=== PATIENT | male | born 1935 | race Caucasian/White ===

== ENCOUNTER → 2016-11-13 | Outpatient (CLI) | payer MEDICARE | END | disposition home or self-care (01) | LOC: RAD 08:26 | PROVIDERS: ATTEND Psychiatry & Neurology Neurology | DX: M51.34 Other intervertebral disc degeneration, thoracic region (principal); M51.24 Other intervertebral disc displacement, thoracic region; M51.44 Schmorl's nodes, thoracic region | CPT/HCPCS: 72146 ==

== ENCOUNTER 2017-08-29 11:23 | Emergency (ER) | payer MEDICARE ==
[~2017-08-29] VITALS: Ht 170.2 cm; Wt 73.0 kg
[2017-08-29] MEDS ORDERED: RIVA15TA PO (12:25)
[2017-08-29] MEDS ORDERED: GABA-826 PO (12:33)
[2017-08-29] MEDS ORDERED: FLUO10CA7 PO (12:33)
[2017-08-29] MEDS ORDERED: LANS30CA60 PO (12:33)
[2017-08-29] MEDS ORDERED: NITR0.4T28 SL (12:33)
[2017-08-29] MEDS ORDERED: OMEG-14 PO (12:33)
[2017-08-29] MEDS ORDERED: METO25TA35 PO (12:33)
[2017-08-29] MEDS ORDERED: DONE10TA56 PO (12:33)
[2017-08-29] MEDS ORDERED: CARB1TAB2 PO (12:33)
[2017-08-29] MEDS ORDERED: FENO145T13 PO (12:33)
[2017-08-29] MEDS ORDERED: ONDANSETRON 2MG/ML, 2ML IVPush ONE (13:00)
[2017-08-29] MEDS ORDERED: ASPIRIN 81 MG TABLET CHEW PO ONE (13:00)
[2017-08-29] MEDS ORDERED: MORPHINE SULFATE 4 MG/ML, 1ML IVPush PRN (13:00)
[2017-08-29] MEDS ORDERED: SODIUM CHLORIDE FLUSH 10ML SYR IVF ONE (13:00)
[2017-08-29 13:21] LABS: MEAN CORPUSCULAR HEMOGLOBIN 32.7 pg (27.5-34.5); MEAN CORPUSCULAR HGB CONC 32.5 g/dL (33.2-36.2); MEAN CORPUSCULAR VOLUME 100.7 fL (81-97); MEAN PLATELET VOLUME 8.4 fL (7.4-10.4); PLATELET COUNT 136 x10^3/uL (130-400); RED CELL DISTRIBUTION WIDTH 15.1 % (9.4-14.8)
[2017-08-29 13:31] LABS: ALBUMIN 3.5 g/dL (3.4-5.0); ANION GAP 6 mmol/L (5-15); CALCIUM 8.8 mg/dL (8.5-10.1); CHLORIDE 109 mmol/L (98-107); CREATININE 1.32 mg/dL (0.7-1.3)
[2017-08-29 13:36] LABS: ALKALINE PHOSPHATASE 46 U/L (45-117); BILIRUBIN,TOTAL 0.8 mg/dL (0.2-1.0); TROPONIN I 0.023 ng/mL (0.000-0.045)
[2017-08-29 13:48] LABS: MD YES
[2017-08-29 13:49] LABS: ALANINE AMINOTRANSFERASE < 6 U/L (12-78)
[2017-08-29 13:52] LABS: <PLATELET ESTIMATE> ADEQUATE; <PLT MORPHOLOGY> NORMAL PLT MORPH; ANISOCYTOSIS 1+; LYMPH#(MANUAL) 5.02 x10^3/uL (1-3.4); LYMPHS% (MANUAL) 54 % (22-44); MONOS#(MANUAL) 0.37 x10^3/uL (0.3-2.7); MONOS% (MANUAL) 4 % (2-9); REACTIVE LYMPHS # (MANUAL) 0.84 x10^3/uL (0-0); REACTIVE LYMPHS % (MANUAL) 9 % (0-0); SEG#(MANUAL) 3.07 x10^3/uL (1.8-6.8); SEGS% (MANUAL) 33 % (42-75)
[2017-08-29 14:45] VITALS: BP 122/84
== END 2017-08-29 16:13 | disposition home or self-care (01) ==
LOC: ED 13:36
DX: R07.89 Other chest pain (principal); G20 Parkinson's disease
CPT/HCPCS: 36415; 71045; 80053; 83605; 84484; 85025; 93005; 99285

== ENCOUNTER → 2017-12-26 | Outpatient (CLI) | payer MEDICARE ==
[~2017-12-26] MED LIST: CARB1TAB2 PO; DONE10TA56 PO; FENO145T30 PO; FLUO10CA7 PO; GABA-826 PO; LANS30CA60 PO; METO25TA35 PO; NITR0.4T28 SL; OMEG-14 PO; OMNIPAQUE 350 MG/ML, 150 ML BOTTLE ONE; RIVA15TA PO
== END | disposition home or self-care (01) ==
LOC: CFH 12:22
PROVIDERS: ATTEND Urology
DX: K76.0 Fatty (change of) liver, not elsewhere classified (principal); I72.3 Aneurysm of iliac artery; R16.1 Splenomegaly, not elsewhere classified
CPT/HCPCS: 74178; 82565; Q9967

== ENCOUNTER → 2018-04-30 | Outpatient (CLI) | payer MEDICARE ==
[~2018-04-30] MED LIST changes: -OMNIPAQUE 350 MG/ML, 150 ML BOTTLE ONE
== END | disposition home or self-care (01) ==
LOC: CFH 15:05
PROVIDERS: ATTEND Psychiatry & Neurology Neurology
DX: M48.02 Spinal stenosis, cervical region (principal)
CPT/HCPCS: 72141

== ENCOUNTER 2018-05-31 16:52 | Inpatient (IN) | payer MEDICARE ==
[~2018-05-31] VITALS: Ht 180.3 cm; Wt 66.9 kg
[2018-05-31] MEDS ORDERED: MORPHINE SULFATE 4 MG/ML, 1ML IVPush PRN (17:30)
[2018-05-31] MEDS ORDERED: ONDANSETRON 2MG/ML, 2ML IVPush ONE (17:30)
[2018-05-31] MEDS ORDERED: SODIUM CHLORIDE FLUSH 10ML SYR IVF ONE (17:30)
[2018-05-31] MEDS ORDERED: MORPHINE SULFATE 4 MG/ML, 1ML ONE (17:40)
[2018-05-31] MEDS ORDERED: ONDANSETRON 2MG/ML, 2ML ONE (17:44)
[2018-05-31 17:48] LABS: MEAN CORPUSCULAR HEMOGLOBIN 32.7 pg (27.5-34.5); MEAN CORPUSCULAR VOLUME 98.9 fL (81-97); MEAN PLATELET VOLUME 7.4 fL (7.4-10.4); PLATELET COUNT 136 x10^3/uL (130-400); RED BLOOD COUNT 3.96 x10^6/uL (4.38-5.82); RED CELL DISTRIBUTION WIDTH 14.7 % (9.4-14.8)
[2018-05-31 18:01] LABS: ALBUMIN 3.2 g/dL (3.4-5.0); ANION GAP 7 mmol/L (5-15); CALCIUM 8.6 mg/dL (8.5-10.1); CHLORIDE 107 mmol/L (98-107)
[2018-05-31 18:05] LABS: ALANINE AMINOTRANSFERASE 21 U/L (12-78); ALKALINE PHOSPHATASE 46 U/L (45-117); BILIRUBIN,TOTAL 0.9 mg/dL (0.2-1.0); TOTAL PROTEIN 6.6 g/dL (6.4-8.2)
[2018-05-31 18:32] LABS: MICROSCOPIC NOT IND
[2018-05-31 18:39] LABS: CULTURE INDICATED? NO
[2018-05-31] MEDS ORDERED: B-12 (19:01)
[2018-05-31] MEDS ORDERED: CYCL5TAB PO (19:01)
[2018-05-31] MEDS ORDERED: LANS15CA5 PO (19:01)
[2018-05-31] MEDS ORDERED: DONE5TAB7 PO (19:01)
[2018-05-31] MEDS ORDERED: STOOL SOFTENER (19:01)
[2018-05-31] MEDS ORDERED: IMODIUM (19:01)
[2018-05-31 19:11] LABS: MD YES
[2018-05-31 19:16] LABS: BASOS% (MANUAL) 1 % (0-1); LYMPH#(MANUAL) 6.91 x10^3/uL (1-3.4); LYMPHS% (MANUAL) 72 % (22-44); MONOS#(MANUAL) 0.38 x10^3/uL (0.3-2.7); MONOS% (MANUAL) 4 % (2-9); SEG#(MANUAL) 1.82 x10^3/uL (1.8-6.8); SEGS% (MANUAL) 19 % (42-75)
[2018-05-31 19:18] LABS: OTHER CELLS # (MANUAL) 0.38 x10^3/uL (0-0)
[2018-05-31 19:19] LABS: <PLATELET ESTIMATE> ADEQUATE; <PLT MORPHOLOGY> NORMAL PLT MORPH; <RBC MORPHOLOGY> NORMAL
[2018-05-31 19:20] LABS: OTHER CELLS % (MANUAL) 4 % (0-0)
[2018-05-31] MEDS ORDERED: SODIUM CHLORIDE FLUSH 10ML SYR IVF PRN (19:30)
[2018-05-31] MEDS ORDERED: NITROGLYCERIN 0.4 MG BOTTLE (25 TABS) SL PRN (20:00)
[2018-05-31] MEDS ORDERED: POLYETHYLENE GLYCOL 17 GM PACKET PO PRN (20:30)
[2018-05-31] MEDS ORDERED: BISACODYL 10 MG SUPP PR PRN (20:30)
[2018-05-31] MEDS ORDERED: ACETAMINOPHEN 325 MG TABLET PO PRN (20:30)
[2018-05-31] MEDS ORDERED: KETOROLAC 30 MG/1 ML IV PRN (20:30)
[2018-05-31] MEDS ORDERED: METHOCARBAMOL 500 MG TABLET PO PRN (20:30)
[2018-05-31] MEDS ORDERED: ONDANSETRON ODT 4 MG PO PRN (20:30)
[2018-05-31 20:51] LABS: FOLATE LEVEL 6.6 ng/mL (3.1-17.5)
[2018-05-31 20:55] VITALS: BP 146/89
[2018-05-31] MEDS: SODIUM CHLORIDE FLUSH 10ML SYR IVF SCH (21:00)
[2018-05-31] MEDS: OMEGA-3/FISH OIL CAPSULE PO SCH (22:19)
[2018-05-31] MEDS: GABAPENTIN 100 MG CAPSULE PO SCH (22:19)
[2018-05-31] MEDS: CARBIDOPA/LEVODOPA 25 MG/100 MG TABLET PO SCH (22:20)
[2018-06-01 01:00] VITALS: BP 103/65
[2018-06-01 04:45] LABS: MEAN CORPUSCULAR HEMOGLOBIN 33.2 pg (27.5-34.5); MEAN CORPUSCULAR HGB CONC 33.8 g/dL (33.2-36.2); MEAN CORPUSCULAR VOLUME 98.3 fL (81-97); MEAN PLATELET VOLUME 7.7 fL (7.4-10.4); PLATELET COUNT 127 x10^3/uL (130-400); RED BLOOD COUNT 3.81 x10^6/uL (4.38-5.82); RED CELL DISTRIBUTION WIDTH 14.6 % (9.4-14.8)
[2018-06-01 04:52] LABS: ALBUMIN 2.9 g/dL (3.4-5.0); ANION GAP 7 mmol/L (5-15); CALCIUM 7.9 mg/dL (8.5-10.1); CHLORIDE 111 mmol/L (98-107)
[2018-06-01 04:56] LABS: ALANINE AMINOTRANSFERASE 10 U/L (12-78); ALKALINE PHOSPHATASE 44 U/L (45-117); BILIRUBIN,TOTAL 0.7 mg/dL (0.2-1.0); CREATININE 1.03 mg/dL (0.7-1.3); TOTAL PROTEIN 5.7 g/dL (6.4-8.2)
[2018-06-01] MEDS: CARBIDOPA/LEVODOPA 25 MG/100 MG TABLET PO SCH ×4 (05:12→20:04)
[2018-06-01] MEDS: GABAPENTIN 100 MG CAPSULE PO SCH ×4 (05:12→20:04)
[2018-06-01 05:41] LABS: MD YES
[2018-06-01 05:43] LABS: <RBC MORPHOLOGY> NORMAL; EOS#(MANUAL) 0.18 x10^3/uL (0.0-0.4); EOS% (MANUAL) 2 % (1-7); LYMPH#(MANUAL) 6.32 x10^3/uL (1-3.4); LYMPHS% (MANUAL) 71 % (22-44); MONOS#(MANUAL) 0.36 x10^3/uL (0.3-2.7); MONOS% (MANUAL) 4 % (2-9); REACTIVE LYMPHS # (MANUAL) 0.27 x10^3/uL (0-0); REACTIVE LYMPHS % (MANUAL) 3 % (0-0); SEG#(MANUAL) 1.78 x10^3/uL (1.8-6.8); SEGS% (MANUAL) 20 % (42-75)
[2018-06-01 05:44] LABS: <PLATELET ESTIMATE> ADEQUATE; <PLT MORPHOLOGY> NORMAL PLT MORPH
[2018-06-01 08:00] VITALS: BP 109/72
[2018-06-01] MEDS: PANTOPROZOLE 40MG TABLET PO SCH (08:59)
[2018-06-01] MEDS: OMEGA-3/FISH OIL CAPSULE PO SCH ×2 (08:59→20:04)
[2018-06-01] MEDS: FLUOXETINE 10 MG CAP PO SCH (08:59)
[2018-06-01] MEDS: RIVAROXABAN 15 MG TABLET PO SCH (08:59)
[2018-06-01] MEDS: FENOFIBRATE 145 MG TABLET PO SCH (08:59)
[2018-06-01] MEDS: DONEPEZIL 5 MG TABLET PO SCH (08:59)
[2018-06-01] MEDS ORDERED: TEMPLATE NON-FORMULARY MED. (Cyclobenzaprine Hcl** 5 MG) PO SCH (09:00)
[2018-06-01] MEDS: SENNA/DOCUSATE TABLET PO SCH (09:00)
[2018-06-01] MEDS: SODIUM CHLORIDE FLUSH 10ML SYR IVF SCH ×2 (09:00→20:06)
[2018-06-01] MEDS ORDERED: GADOBUTROL 7.5 MMOL/7.5 ML PFS ONE (12:24)
[2018-06-01 14:00] VITALS: BP 105/67
[2018-06-01 19:52] VITALS: BP 100/68
[2018-06-02 03:04] VITALS: BP 110/72
[2018-06-02] MEDS: CARBIDOPA/LEVODOPA 25 MG/100 MG TABLET PO SCH ×4 (05:09→20:46)
[2018-06-02] MEDS: GABAPENTIN 100 MG CAPSULE PO SCH ×4 (05:09→20:46)
[2018-06-02 07:58] VITALS: BP 100/62
[2018-06-02] MEDS: SENNA/DOCUSATE TABLET PO SCH (08:46)
[2018-06-02] MEDS: FENOFIBRATE 145 MG TABLET PO SCH (08:46)
[2018-06-02] MEDS: DONEPEZIL 5 MG TABLET PO SCH (08:46)
[2018-06-02] MEDS: FLUOXETINE 10 MG CAP PO SCH (08:47)
[2018-06-02] MEDS: OMEGA-3/FISH OIL CAPSULE PO SCH ×2 (08:47→20:46)
[2018-06-02] MEDS: PANTOPROZOLE 40MG TABLET PO SCH (08:47)
[2018-06-02] MEDS: RIVAROXABAN 15 MG TABLET PO SCH (08:47)
[2018-06-02] MEDS: SODIUM CHLORIDE FLUSH 10ML SYR IVF SCH ×2 (08:48→20:47)
[2018-06-02 11:30] VITALS: BP 117/82
[2018-06-02 19:48] VITALS: BP 112/78
[2018-06-03 01:16] VITALS: BP 104/72
[2018-06-03 04:52] LABS: HCT (SEDRATE) 39.6 % (39.2-51.8)
[2018-06-03 04:59] LABS: HIGH-SENSITIVITY CRP 0.15 mg/dL (0.02-0.30)
[2018-06-03] MEDS: GABAPENTIN 100 MG CAPSULE PO SCH ×4 (06:16→19:56)
[2018-06-03] MEDS: CARBIDOPA/LEVODOPA 25 MG/100 MG TABLET PO SCH ×4 (06:16→19:56)
[2018-06-03 06:26] VITALS: BP 114/78
[2018-06-03] MEDS: SODIUM CHLORIDE FLUSH 10ML SYR IVF SCH ×2 (09:00→19:56)
[2018-06-03] MEDS: FLUOXETINE 10 MG CAP PO SCH (09:40)
[2018-06-03] MEDS: DONEPEZIL 5 MG TABLET PO SCH (09:40)
[2018-06-03] MEDS: OMEGA-3/FISH OIL CAPSULE PO SCH ×2 (09:40→19:56)
[2018-06-03] MEDS: PANTOPROZOLE 40MG TABLET PO SCH (09:41)
[2018-06-03] MEDS: SENNA/DOCUSATE TABLET PO SCH (09:41)
[2018-06-03] MEDS: FENOFIBRATE 145 MG TABLET PO SCH (09:41)
[2018-06-03] MEDS: RIVAROXABAN 15 MG TABLET PO SCH (09:41)
[2018-06-03] MEDS ORDERED: TRAM50TA2 PO (10:51)
[2018-06-03] MEDS ORDERED: METH500T7 PO (10:51)
[2018-06-03 13:06] VITALS: BP 113/74
[2018-06-03 19:35] VITALS: BP 121/78
[2018-06-04 00:37] VITALS: BP 102/67
[2018-06-04] MEDS: GABAPENTIN 100 MG CAPSULE PO SCH ×2 (06:17→11:27)
[2018-06-04] MEDS: CARBIDOPA/LEVODOPA 25 MG/100 MG TABLET PO SCH ×2 (06:17→11:27)
[2018-06-04 07:38] VITALS: BP 108/74
[2018-06-04] MEDS: FLUOXETINE 10 MG CAP PO SCH (09:53)
[2018-06-04] MEDS: PANTOPROZOLE 40MG TABLET PO SCH (09:53)
[2018-06-04] MEDS: DONEPEZIL 5 MG TABLET PO SCH (09:53)
[2018-06-04] MEDS: OMEGA-3/FISH OIL CAPSULE PO SCH (09:53)
[2018-06-04] MEDS: RIVAROXABAN 15 MG TABLET PO SCH (09:54)
[2018-06-04] MEDS: SENNA/DOCUSATE TABLET PO SCH (09:54)
[2018-06-04] MEDS: FENOFIBRATE 145 MG TABLET PO SCH (09:54)
[2018-06-04] MEDS: SODIUM CHLORIDE FLUSH 10ML SYR IVF SCH (11:28)
== END 2018-06-04 12:09 | DRG 551 ==
LOC: ED 17:35 → EDIP 19:28 → 4WST 20:37
PROVIDERS: ADMIT Hospitalist; ATTEND Hospitalist
DX: M51.16 Intervertebral disc disorders with radiculopathy, lumbar region (principal); R53.2 Functional quadriplegia; M48.061 Spinal stenosis, lumbar region without neurogenic claudication; I72.3 Aneurysm of iliac artery; E78.5 Hyperlipidemia, unspecified; F03.90 Unspecified dementia, unspecified severity, without behavioral disturbance, psychotic disturbance, mood disturbance, and anxiety; F32.9 Major depressive disorder, single episode, unspecified; G89.29 Other chronic pain; H91.90 Unspecified hearing loss, unspecified ear; I25.10 Atherosclerotic heart disease of native coronary artery without angina pectoris; K21.9 Gastro-esophageal reflux disease without esophagitis; M19.90 Unspecified osteoarthritis, unspecified site; R32 Unspecified urinary incontinence; Z66 Do not resuscitate; Z74.01 Bed confinement status; Z88.8 Allergy status to other drugs, medicaments and biological substances; Z79.01 Long term (current) use of anticoagulants; Z86.711 Personal history of pulmonary embolism; Z95.1 Presence of aortocoronary bypass graft; G20 Parkinson's disease; Z90.49 Acquired absence of other specified parts of digestive tract; Z79.899 Other long term (current) drug therapy
CPT/HCPCS: 36415; 72110; 72156; 72157; 72158; 80053; 81003; 82085; 82550; 82607; 82746; 85025; 85651; 86141; 93978; 99285; A9585; G0378

== ENCOUNTER 2018-07-17 12:46 | Observation (INO) | payer MEDICARE ==
[~2018-07-17] VITALS: Ht 170.2 cm; Wt 73.0 kg
[~2018-07-17 12:46] MED LIST changes: +B-12; +CYCL5TAB PO; +DONE5TAB7 PO; +IMODIUM; +LANS15CA5 PO; +METH500T7 PO; +STOOL SOFTENER; +TRAM50TA2 PO
--- NOTE | 2018-07-17 12:56 | NUR ---
REPORT RECEIVED FROM EMS, PATIENT WITH GLF 07/14, PATIENT SUSTAINED ABRASION TO L FOREHEAD. PATIENT DID NOT RECEIVE MEDICAL CARE AT THAT TIME, BUT TODAY WAS UNABLE TO GET UP AND INCREASED WEAKNESS. REPORT TO KHLOE MAGANA.
[2018-07-17] MEDS ORDERED: SODIUM CHLORIDE FLUSH 10ML SYR IVF ONE (13:30)
[2018-07-17 13:32] LABS: MEAN CORPUSCULAR HEMOGLOBIN 32.9 pg (27.5-34.5); MEAN CORPUSCULAR HGB CONC 32.9 g/dL (33.2-36.2); MEAN CORPUSCULAR VOLUME 99.9 fL (81-97); MEAN PLATELET VOLUME 8.1 fL (7.4-10.4); PLATELET COUNT 108 x10^3/uL (130-400); RED BLOOD COUNT 3.94 x10^6/uL (4.38-5.82); RED CELL DISTRIBUTION WIDTH 15.4 % (9.4-14.8)
[2018-07-17 13:41] LABS: ALBUMIN 3.3 g/dL (3.4-5.0); ANION GAP 4 mmol/L (5-15); CALCIUM 8.9 mg/dL (8.5-10.1); CHLORIDE 111 mmol/L (98-107); CREATININE 1.46 mg/dL (0.7-1.3)
--- NOTE | 2018-07-17 13:57 | NUR ---
BREAK RN: VS UPDATED IN CHART, URINAL PROVIDED TO PATIENT FOR UA, PATIENT ATTEMPTING TO USE URINAL AT THIS TIME, NAD NOTED.
--- NOTE | 2018-07-17 14:19 | NUR ---
UA SENT TO LAB.
[2018-07-17 14:27] LABS: MICROSCOPIC AUTO
[2018-07-17 14:29] LABS: CULTURE INDICATED? NO
[2018-07-17 14:31] LABS: MD YES
[2018-07-17 14:39] LABS: ANISOCYTOSIS 1+; BAND#(MANUAL) 0.09 x10^3/uL; BANDS%(MANUAL) 1 % (0-7); BASOS#(MANUAL) 0.09 x10^3/uL (0-0.1); BASOS% (MANUAL) 1 % (0-1); EOS#(MANUAL) 0.09 x10^3/uL (0.0-0.4); EOS% (MANUAL) 1 % (1-7); LYMPH#(MANUAL) 5.52 x10^3/uL (1-3.4); LYMPHS% (MANUAL) 60 % (22-44); MONOS#(MANUAL) 0.55 x10^3/uL (0.3-2.7); MONOS% (MANUAL) 6 % (2-9); REACTIVE LYMPHS # (MANUAL) 0.28 x10^3/uL (0-0); REACTIVE LYMPHS % (MANUAL) 3 % (0-0); SEG#(MANUAL) 2.58 x10^3/uL (1.8-6.8); SEGS% (MANUAL) 28 % (42-75)
[2018-07-17 14:40] LABS: <PLATELET ESTIMATE> DECREASED; <PLT MORPHOLOGY> NORMAL PLT MORPH
--- NOTE | 2018-07-17 15:01 | NUR ---
pt upright on gurney awake & calm, responds approp to staff, NAD, comfort measures provided, son at BS, call light within reach.
--- NOTE | 2018-07-17 16:01 | NUR ---
pt remians upright on gurney awake & calm, responds approp to staff, NAD, comfort measures provided, call light within reach.
[2018-07-17] MEDS ORDERED: SODIUM CHLORIDE 0.9% 1,000 ML IV SCH (16:21)
[2018-07-17] MEDS ORDERED: METHOCARBAMOL 500 MG TABLET PO PRN (16:30)
[2018-07-17] MEDS ORDERED: ONDANSETRON ODT 4 MG PO PRN (16:30)
[2018-07-17] MEDS ORDERED: ACETAMINOPHEN 325 MG TABLET PO PRN (16:30)
[2018-07-17] MEDS ORDERED: DOCUSATE 100 MG CAPSULE PO PRN (16:30)
[2018-07-17] MEDS ORDERED: NITROGLYCERIN 0.4 MG BOTTLE (25 TABS) SL PRN (16:30)
[2018-07-17] MEDS ORDERED: LIDODERM 5% PATCH TD PRN (16:30)
[2018-07-17 16:49] LABS: THYROID STIMULATING HORMONE 1.03 mIU/L (0.358-3.740)
--- NOTE | 2018-07-17 16:53 | NUR ---
Pt to be admitted to med-surg, room 476. Report called to
[2018-07-17] MEDS ORDERED: PHARMACY MAY ADJ FOR RENAL FX MC PRN (17:00)
[2018-07-17 19:17] VITALS: BP 147/77
[2018-07-17 20:13] VITALS: BP 148/83
[2018-07-17] MEDS ORDERED: RIVAROXABAN 10 MG TABLET ONE (20:38)
[2018-07-17] MEDS: GABAPENTIN 100 MG CAPSULE PO SCH (21:15)
[2018-07-17] MEDS: OMEGA-3/FISH OIL CAPSULE PO SCH (21:15)
[2018-07-17] MEDS: CARBIDOPA/LEVODOPA 25 MG/100 MG TABLET PO SCH (21:16)
[2018-07-17] MEDS: RIVAROXABAN 15 MG TABLET PO SCH (21:43)
[2018-07-18 02:02] VITALS: BP 139/85
[2018-07-18 05:51] LABS: MEAN CORPUSCULAR HEMOGLOBIN 33.3 pg (27.5-34.5); MEAN CORPUSCULAR HGB CONC 33.6 g/dL (33.2-36.2); MEAN PLATELET VOLUME 7.8 fL (7.4-10.4); PLATELET COUNT 105 x10^3/uL (130-400); RED BLOOD COUNT 3.73 x10^6/uL (4.38-5.82); RED CELL DISTRIBUTION WIDTH 15.1 % (9.4-14.8)
[2018-07-18 05:57] LABS: ANION GAP 5 mmol/L (5-15); CALCIUM 8.2 mg/dL (8.5-10.1); CHLORIDE 110 mmol/L (98-107); CREATININE 1.42 mg/dL (0.7-1.3)
[2018-07-18] MEDS: CARBIDOPA/LEVODOPA 25 MG/100 MG TABLET PO SCH ×4 (06:03→20:32)
[2018-07-18] MEDS: GABAPENTIN 100 MG CAPSULE PO SCH ×4 (06:04→20:32)
[2018-07-18 06:15] LABS: BASOPHILS # (AUTO) 0.03 x10^3/uL (0-0.1); BASOPHILS % (AUTO) 0 % (0-1); EOSINOPHILS # (AUTO) 0.22 x10^3/uL (0-0.4); EOSINOPHILS % (AUTO) 2 % (1-7); LYMPHOCYTES # (AUTO) 6.33 x10^3/uL (1-3.4); LYMPHOCYTES % (AUTO) 68 % (22-44); MD SCAN; MONOCYTES # (AUTO) 0.57 x10^3/uL (0.2-0.8); MONOCYTES % (AUTO) 6 % (2-9); NEUTROPHILS # (AUTO) 2.21 x10^3/uL (1.8-6.8); NEUTROPHILS % (AUTO) 24 % (42-75)
[2018-07-18] MEDS: DONEPEZIL 5 MG TABLET PO SCH (08:21)
[2018-07-18] MEDS: OMEGA-3/FISH OIL CAPSULE PO SCH ×2 (08:22→20:32)
[2018-07-18] MEDS: FENOFIBRATE 145 MG TABLET PO SCH (08:22)
[2018-07-18] MEDS: FLUOXETINE 10 MG CAP PO SCH (08:22)
[2018-07-18] MEDS: LANSOPRAZOLE 30 MG HOMEMEDPO SCH (08:23)
[2018-07-18] MEDS ORDERED: RIVAROXABAN 15 MG TABLET PO SCH (09:00)
[2018-07-18 09:29] VITALS: BP 122/79
[2018-07-18 14:00] VITALS: BP 138/84
[2018-07-18] MEDS ORDERED: SODIUM CHLORIDE 0.9% 1,000 ML IV SCH (16:21)
[2018-07-18 19:53] VITALS: BP 124/65
[2018-07-18] MEDS: RIVAROXABAN 15 MG TABLET PO SCH (20:32)
[2018-07-19 01:37] VITALS: BP 122/80
[2018-07-19 06:12] LABS: MEAN CORPUSCULAR HEMOGLOBIN 32.5 pg (27.5-34.5); MEAN CORPUSCULAR HGB CONC 32.8 g/dL (33.2-36.2); MEAN CORPUSCULAR VOLUME 98.9 fL (81-97); MEAN PLATELET VOLUME 7.7 fL (7.4-10.4); PLATELET COUNT 107 x10^3/uL (130-400); RED BLOOD COUNT 3.91 x10^6/uL (4.38-5.82)
[2018-07-19] MEDS: CARBIDOPA/LEVODOPA 25 MG/100 MG TABLET PO SCH ×4 (06:13→22:02)
[2018-07-19] MEDS: GABAPENTIN 100 MG CAPSULE PO SCH ×4 (06:14→22:02)
[2018-07-19 06:25] LABS: ANION GAP 8 mmol/L (5-15); CALCIUM 7.9 mg/dL (8.5-10.1); CHLORIDE 109 mmol/L (98-107)
[2018-07-19 06:27] LABS: CREATININE 0.87 mg/dL (0.7-1.3)
[2018-07-19 06:34] VITALS: BP 127/85
[2018-07-19 07:22] LABS: MD YES
[2018-07-19 08:01] LABS: <PLATELET ESTIMATE> DECREASED; <PLT MORPHOLOGY> NORMAL PLT MORPH; ANISOCYTOSIS 1+; LYMPH#(MANUAL) 5.83 x10^3/uL (1-3.4); LYMPHS% (MANUAL) 72 % (22-44); MONOS#(MANUAL) 0.32 x10^3/uL (0.3-2.7); MONOS% (MANUAL) 4 % (2-9); SEG#(MANUAL) 1.94 x10^3/uL (1.8-6.8); SEGS% (MANUAL) 24 % (42-75)
[2018-07-19] MEDS: LANSOPRAZOLE 30 MG HOMEMEDPO SCH (09:00)
[2018-07-19] MEDS: FLUOXETINE 10 MG CAP PO SCH (09:58)
[2018-07-19] MEDS: OMEGA-3/FISH OIL CAPSULE PO SCH ×2 (09:58→22:02)
[2018-07-19] MEDS: DONEPEZIL 5 MG TABLET PO SCH (09:58)
[2018-07-19] MEDS: FENOFIBRATE 145 MG TABLET PO SCH (09:58)
[2018-07-19] MEDS ORDERED: ACET325T14 PO (10:53)
[2018-07-19 12:28] VITALS: BP 115/74
[2018-07-19 20:24] VITALS: BP 91/61
[2018-07-19] MEDS: RIVAROXABAN 15 MG TABLET PO SCH (22:02)
[2018-07-20 02:06] VITALS: BP 113/73
[2018-07-20] MEDS: GABAPENTIN 100 MG CAPSULE PO SCH ×4 (05:40→22:44)
[2018-07-20] MEDS: CARBIDOPA/LEVODOPA 25 MG/100 MG TABLET PO SCH ×4 (05:40→22:44)
[2018-07-20] MEDS: DONEPEZIL 5 MG TABLET PO SCH (07:59)
[2018-07-20] MEDS: OMEGA-3/FISH OIL CAPSULE PO SCH ×2 (07:59→22:44)
[2018-07-20] MEDS: FLUOXETINE 10 MG CAP PO SCH (07:59)
[2018-07-20] MEDS: FENOFIBRATE 145 MG TABLET PO SCH (07:59)
[2018-07-20] MEDS: LANSOPRAZOLE 30 MG HOMEMEDPO SCH (08:00)
[2018-07-20 08:34] VITALS: BP 107/70
[2018-07-20 14:04] VITALS: BP 79/55
[2018-07-20] MEDS ORDERED: SODIUM CHLORIDE 0.9%, 500ML IVBOLUS ONE (14:30)
[2018-07-20 21:47] VITALS: BP 114/73
[2018-07-20] MEDS: RIVAROXABAN 15 MG TABLET PO SCH (22:44)
[2018-07-21 03:41] VITALS: BP 108/71
[2018-07-21] MEDS: CARBIDOPA/LEVODOPA 25 MG/100 MG TABLET PO SCH ×4 (05:21→21:09)
[2018-07-21] MEDS: GABAPENTIN 100 MG CAPSULE PO SCH ×4 (05:21→21:09)
[2018-07-21 08:00] VITALS: BP 116/77
[2018-07-21] MEDS: LANSOPRAZOLE 30 MG HOMEMEDPO SCH (09:00)
[2018-07-21] MEDS: DONEPEZIL 5 MG TABLET PO SCH (09:53)
[2018-07-21] MEDS: FENOFIBRATE 145 MG TABLET PO SCH (09:53)
[2018-07-21] MEDS: OMEGA-3/FISH OIL CAPSULE PO SCH ×2 (09:53→21:08)
[2018-07-21] MEDS: FLUOXETINE 10 MG CAP PO SCH (09:53)
[2018-07-21 15:23] VITALS: BP 103/72
[2018-07-21] MEDS: RIVAROXABAN 15 MG TABLET PO SCH (21:08)
[2018-07-21 21:30] VITALS: BP 104/66
[2018-07-22 03:11] VITALS: BP 90/58
[2018-07-22] MEDS: GABAPENTIN 100 MG CAPSULE PO SCH ×2 (06:45→11:09)
[2018-07-22] MEDS: CARBIDOPA/LEVODOPA 25 MG/100 MG TABLET PO SCH ×2 (06:46→11:09)
[2018-07-22 07:25] VITALS: BP 94/63
[2018-07-22] MEDS: DONEPEZIL 5 MG TABLET PO SCH (08:16)
[2018-07-22] MEDS: FENOFIBRATE 145 MG TABLET PO SCH (08:16)
[2018-07-22] MEDS: FLUOXETINE 10 MG CAP PO SCH (08:16)
[2018-07-22] MEDS: OMEGA-3/FISH OIL CAPSULE PO SCH (08:16)
[2018-07-22] MEDS: LANSOPRAZOLE 30 MG HOMEMEDPO SCH (08:17)
== END 2018-07-22 13:22 ==
LOC: ED 14:24 → EDIP 14:58 → INTOOBSV 14:58 → 4NOR 17:13
PROVIDERS: ADMIT Internal Medicine; ATTEND Internal Medicine
DX: S00.01XA Abrasion of scalp, initial encounter (principal); R53.1 Weakness; D69.6 Thrombocytopenia, unspecified; F03.90 Unspecified dementia, unspecified severity, without behavioral disturbance, psychotic disturbance, mood disturbance, and anxiety; F32.9 Major depressive disorder, single episode, unspecified; G20 Parkinson's disease; G89.29 Other chronic pain; H91.90 Unspecified hearing loss, unspecified ear; I10 Essential (primary) hypertension; I25.10 Atherosclerotic heart disease of native coronary artery without angina pectoris; K21.9 Gastro-esophageal reflux disease without esophagitis; K76.0 Fatty (change of) liver, not elsewhere classified; N17.0 Acute kidney failure with tubular necrosis; R29.6 Repeated falls; R62.7 Adult failure to thrive; W01.0XXA Fall on same level from slipping, tripping and stumbling without subsequent striking against object, initial encounter; X58.XXXA Exposure to other specified factors, initial encounter; Y93.89 Activity, other specified; Y92.89 Other specified places as the place of occurrence of the external cause; Y99.8 Other external cause status; Z79.01 Long term (current) use of anticoagulants; Z86.711 Personal history of pulmonary embolism; Z95.1 Presence of aortocoronary bypass graft
CPT/HCPCS: 36415; 70450; 80048; 81001; 82040; 82550; 83735; 84443; 85025; 92522; 93005; 97162; 97166; 99284; G0378; G8978; G8979; G8980; J7030; J7040; CL

== ENCOUNTER 2018-10-11 17:35 | Inpatient (IN) | payer MEDICARE ==
[~2018-10-11] VITALS: Ht 172.7 cm; Wt 69.9 kg
[~2018-10-11 17:35] MED LIST changes: +ACET325T14 PO
[2018-10-11] MEDS ORDERED: DOCU-180 PO (18:30)
[2018-10-11] MEDS ORDERED: MORPHINE SULFATE 4 MG/ML, 1ML ONE (18:54)
[2018-10-11] MEDS ORDERED: MORPHINE SULFATE 4 MG/ML, 1ML IVPush PRN (19:00)
[2018-10-11 19:07] LABS: MEAN CORPUSCULAR HEMOGLOBIN 33.4 pg (27.5-34.5); MEAN CORPUSCULAR HGB CONC 33.5 g/dL (33.2-36.2); MEAN CORPUSCULAR VOLUME 99.6 fL (81-97); MEAN PLATELET VOLUME 7.6 fL (7.4-10.4); PLATELET COUNT 141 x10^3/uL (130-400); RED BLOOD COUNT 3.64 x10^6/uL (4.38-5.82); RED CELL DISTRIBUTION WIDTH 15.4 % (9.4-14.8)
--- NOTE | 2018-10-11 19:10 | NUR ---
received report from KHLOE Cope
[2018-10-11 19:14] LABS: INTERNATIONAL NORMALIZED RATIO 1.29 (0.93-1.1); PROTHROMBIN TIME 13.4 Seconds (9.6-11.5)
[2018-10-11 19:15] LABS: CHLORIDE 113 mmol/L (98-107)
[2018-10-11 19:16] LABS: ALANINE AMINOTRANSFERASE 8 U/L (12-78); ALBUMIN 3.4 g/dL (3.4-5.0); ANION GAP 3 mmol/L (5-15); CALCIUM 8.7 mg/dL (8.5-10.1); CREATININE 1.24 mg/dL (0.7-1.3)
[2018-10-11 19:19] LABS: ALKALINE PHOSPHATASE 64 U/L (45-117); BILIRUBIN,TOTAL 0.6 mg/dL (0.2-1.0); TOTAL PROTEIN 6.2 g/dL (6.4-8.2); TROPONIN I 0.018 ng/mL (0.000-0.045)
[2018-10-11 19:39] LABS: MD YES
[2018-10-11 19:45] LABS: <PLATELET ESTIMATE> ADEQUATE; <PLT MORPHOLOGY> NORMAL PLT MORPH; ANISOCYTOSIS 1+
[2018-10-11 19:57] LABS: SEGS% (MANUAL) 28 % (42-75)
[2018-10-11 19:58] LABS: LYMPH#(MANUAL) 5.79 x10^3/uL (1-3.4); LYMPHS% (MANUAL) 65 % (22-44); SEG#(MANUAL) 2.49 x10^3/uL (1.8-6.8)
[2018-10-11 19:59] LABS: MONOS#(MANUAL) 0.62 x10^3/uL (0.3-2.7); MONOS% (MANUAL) 7 % (2-9)
[2018-10-11 20:06] LABS: SMUDGE CELLS 1+
--- NOTE | 2018-10-11 20:56 | NUR ---
admit orders made. awaiting bed assignment.
--- NOTE | 2018-10-11 20:56 | NUR ---
patient alert and oriented. attended all needs. patient for admit. denies chest pain at this time.
--- NOTE | 2018-10-11 21:21 | NUR ---
attending MD at bedside.
[2018-10-11] MEDS ORDERED: IBUPROFEN 200 MG TABLET ONE (21:30)
--- NOTE | 2018-10-11 21:50 | NUR ---
bed assigned. report to KHLOE Brandon
[2018-10-11] MEDS ORDERED: DOCUSATE 100 MG CAPSULE PO PRN (22:30)
[2018-10-11] MEDS ORDERED: NITROGLYCERIN 0.4 MG BOTTLE (25 TABS) SL PRN (22:30)
[2018-10-11] MEDS ORDERED: METHOCARBAMOL 500 MG TABLET PO PRN (22:30)
[2018-10-11] MEDS ORDERED: morphine SULFATE 10 MG/ML, 1ML IVPush PRN (22:30)
[2018-10-11] MEDS ORDERED: NITROGLYCERIN 0.4 MG/SPRAY SL PRN (22:30)
[2018-10-11] MEDS: CARBIDOPA/LEVODOPA 25 MG/100 MG TABLET PO SCH (23:04)
[2018-10-11] MEDS: GABAPENTIN 100 MG CAPSULE PO SCH (23:04)
[2018-10-11 23:09] LABS: TROPONIN I 0.018 ng/mL (0.000-0.045)
[2018-10-11 23:11] VITALS: BP 139/90
[2018-10-12 02:03] VITALS: BP 143/84
[2018-10-12 05:08] LABS: MEAN CORPUSCULAR HEMOGLOBIN 33.2 pg (27.5-34.5); MEAN CORPUSCULAR VOLUME 100.6 fL (81-97); MEAN PLATELET VOLUME 7.4 fL (7.4-10.4); PLATELET COUNT 126 x10^3/uL (130-400); RED BLOOD COUNT 3.52 x10^6/uL (4.38-5.82); RED CELL DISTRIBUTION WIDTH 15.3 % (9.4-14.8)
[2018-10-12 05:20] LABS: ANION GAP 4 mmol/L (5-15); CALCIUM 8.3 mg/dL (8.5-10.1); CHLORIDE 112 mmol/L (98-107); CREATININE 1.13 mg/dL (0.7-1.3)
[2018-10-12] MEDS: GABAPENTIN 100 MG CAPSULE PO SCH ×4 (05:22→20:48)
[2018-10-12] MEDS: CARBIDOPA/LEVODOPA 25 MG/100 MG TABLET PO SCH ×4 (05:22→20:48)
[2018-10-12 05:23] LABS: TROPONIN I < 0.015 ng/mL (0.000-0.045)
[2018-10-12 06:09] LABS: MD YES
[2018-10-12 06:16] LABS: EOS#(MANUAL) 0.09 x10^3/uL (0.0-0.4); EOS% (MANUAL) 1 % (1-7); LYMPH#(MANUAL) 5.72 x10^3/uL (1-3.4); LYMPHS% (MANUAL) 65 % (22-44); MONOS#(MANUAL) 0.44 x10^3/uL (0.3-2.7); MONOS% (MANUAL) 5 % (2-9); SEG#(MANUAL) 2.55 x10^3/uL (1.8-6.8); SEGS% (MANUAL) 29 % (42-75)
[2018-10-12 06:17] LABS: <PLATELET ESTIMATE> ADEQUATE; <PLT MORPHOLOGY> NORMAL PLT MORPH; ANISOCYTOSIS 1+
[2018-10-12 08:25] VITALS: BP 136/87
[2018-10-12] MEDS: FLUOXETINE 10 MG CAP PO SCH (08:56)
[2018-10-12] MEDS: FENOFIBRATE 145 MG TABLET PO SCH (08:56)
[2018-10-12] MEDS: DONEPEZIL 5 MG TABLET PO SCH (08:57)
[2018-10-12] MEDS: RIVAROXABAN 15 MG TABLET PO SCH (08:57)
[2018-10-12 09:04] VITALS: BP 108/71
[2018-10-12] MEDS: ACETAMINOPHEN 325 MG TABLET PO PRN (11:48)
[2018-10-12 14:25] VITALS: BP 141/90
[2018-10-12] MEDS ORDERED: FUROSEMIDE 20 MG/2 ML ONE (15:37)
[2018-10-12] MEDS ORDERED: FUROSEMIDE 20 MG/2 ML IV ONE (16:00)
[2018-10-12 18:53] VITALS: BP 128/85
[2018-10-13 01:26] VITALS: BP 162/94
[2018-10-13] MEDS: CARBIDOPA/LEVODOPA 25 MG/100 MG TABLET PO SCH ×4 (05:20→21:38)
[2018-10-13] MEDS: GABAPENTIN 100 MG CAPSULE PO SCH ×4 (05:20→21:38)
[2018-10-13 06:14] VITALS: BP 143/87
[2018-10-13] MEDS ORDERED: REGADENOSON 0.4 MG/5 ML SYRINGE ONE (08:53)
[2018-10-13] MEDS: FENOFIBRATE 145 MG TABLET PO SCH (08:56)
[2018-10-13] MEDS: FLUOXETINE 10 MG CAP PO SCH (08:57)
[2018-10-13] MEDS: RIVAROXABAN 15 MG TABLET PO SCH (08:57)
[2018-10-13] MEDS: DONEPEZIL 5 MG TABLET PO SCH (08:57)
[2018-10-13] MEDS ORDERED: FUROSEMIDE 20 MG/2 ML IV SCH (09:00)
[2018-10-13 12:33] VITALS: BP 92/61
[2018-10-13] MEDS: ACETAMINOPHEN 325 MG TABLET PO PRN (16:20)
[2018-10-13 19:18] VITALS: BP 98/71
[2018-10-14 01:10] VITALS: BP 147/88
[2018-10-14 06:51] VITALS: BP 136/86
[2018-10-14] MEDS: CARBIDOPA/LEVODOPA 25 MG/100 MG TABLET PO SCH ×4 (07:24→21:35)
[2018-10-14] MEDS: GABAPENTIN 100 MG CAPSULE PO SCH ×4 (07:24→21:35)
[2018-10-14] MEDS: RIVAROXABAN 15 MG TABLET PO SCH (08:32)
[2018-10-14] MEDS: FLUOXETINE 10 MG CAP PO SCH (08:32)
[2018-10-14] MEDS: FENOFIBRATE 145 MG TABLET PO SCH (08:32)
[2018-10-14] MEDS: DONEPEZIL 5 MG TABLET PO SCH (08:32)
[2018-10-14 14:25] VITALS: BP 126/85
[2018-10-14] MEDS: SODIUM CHLORIDE 0.9% 1,000 ML IV SCH ×2 (15:30→19:58)
[2018-10-14] MEDS ORDERED: FENTANYL PF 100 MCG/2ML ONE (16:36)
[2018-10-14] MEDS ORDERED: MIDAZOLAM 1 MG/ML, 2ML ONE (16:36)
[2018-10-14] MEDS ORDERED: LIDOCAINE 1%, 20ML ONE (16:36)
[2018-10-14] MEDS ORDERED: HEPARIN 1,000 UNITS/ML, 10ML ONE (17:32)
[2018-10-14] MEDS ORDERED: BIVALIRUDIN 250 MG ONE (17:32)
[2018-10-14] MEDS ORDERED: LIDOCAINE 2%, 20ML ONE (17:32)
[2018-10-14 21:00] VITALS: BP 70/52
[2018-10-14 21:33] VITALS: BP 96/64
[2018-10-15] MEDS: SODIUM CHLORIDE 0.9% 1,000 ML IV SCH ×2 (00:40→06:14)
[2018-10-15 00:43] VITALS: BP 107/72
[2018-10-15 04:37] LABS: CHLORIDE 114 mmol/L (98-107)
[2018-10-15 04:42] LABS: ANION GAP 5 mmol/L (5-15); CALCIUM 8.6 mg/dL (8.5-10.1); CREATININE 1.31 mg/dL (0.7-1.3)
[2018-10-15] MEDS: CARBIDOPA/LEVODOPA 25 MG/100 MG TABLET PO SCH ×4 (06:14→20:47)
[2018-10-15] MEDS: GABAPENTIN 100 MG CAPSULE PO SCH ×4 (06:14→20:47)
[2018-10-15 07:20] VITALS: BP 145/86
[2018-10-15] MEDS: FENOFIBRATE 145 MG TABLET PO SCH (09:07)
[2018-10-15] MEDS: DONEPEZIL 5 MG TABLET PO SCH (09:07)
[2018-10-15] MEDS: FLUOXETINE 10 MG CAP PO SCH (09:07)
[2018-10-15] MEDS: RIVAROXABAN 15 MG TABLET PO SCH (09:08)
[2018-10-15 14:34] VITALS: BP 119/75
[2018-10-15 20:05] VITALS: BP 135/88
[2018-10-16 01:37] VITALS: BP 132/72
[2018-10-16] MEDS: GABAPENTIN 100 MG CAPSULE PO SCH ×3 (05:03→16:28)
[2018-10-16] MEDS: CARBIDOPA/LEVODOPA 25 MG/100 MG TABLET PO SCH ×3 (05:03→16:28)
[2018-10-16 06:45] LABS: ANION GAP 6 mmol/L (5-15); CALCIUM 8.5 mg/dL (8.5-10.1); CHLORIDE 111 mmol/L (98-107)
[2018-10-16 07:58] VITALS: BP 127/72
[2018-10-16] MEDS: DONEPEZIL 5 MG TABLET PO SCH (09:51)
[2018-10-16] MEDS: FLUOXETINE 10 MG CAP PO SCH (09:52)
[2018-10-16] MEDS: RIVAROXABAN 15 MG TABLET PO SCH (09:52)
[2018-10-16] MEDS: FENOFIBRATE 145 MG TABLET PO SCH (09:52)
[2018-10-16 13:55] VITALS: BP 128/79
== END 2018-10-16 17:50 | disposition home or self-care (01) | DRG 286 ==
LOC: ED 19:36 → EDIP 20:45 → 5SO 22:05
PROVIDERS: ADMIT Family Medicine; ATTEND Family Medicine
PROC: 4A023N7 Measurement of Cardiac Sampling and Pressure, Left Heart, Percutaneous Approach (ICD-10-PCS; principal; 2018-10-14)
PROC: B2111ZZ Fluoroscopy of Multiple Coronary Arteries using Low Osmolar Contrast (ICD-10-PCS; 2018-10-14)
PROC: B2151ZZ Fluoroscopy of Left Heart using Low Osmolar Contrast (ICD-10-PCS; 2018-10-14)
PROC: B2121ZZ Fluoroscopy of Single Coronary Artery Bypass Graft using Low Osmolar Contrast (ICD-10-PCS; 2018-10-14)
PROC: B2181ZZ Fluoroscopy of Left Internal Mammary Bypass Graft using Low Osmolar Contrast (ICD-10-PCS; 2018-10-14)
DX: T82.898A Other specified complication of vascular prosthetic devices, implants and grafts, initial encounter (principal); I50.33 Acute on chronic diastolic (congestive) heart failure; I13.0 Hypertensive heart and chronic kidney disease with heart failure and stage 1 through stage 4 chronic kidney disease, or unspecified chronic kidney disease; I24.8 Other forms of acute ischemic heart disease; D68.59 Other primary thrombophilia; D64.9 Anemia, unspecified; D72.820 Lymphocytosis (symptomatic); E78.00 Pure hypercholesterolemia, unspecified; E78.5 Hyperlipidemia, unspecified; G20 Parkinson's disease; G89.29 Other chronic pain; M54.9 Dorsalgia, unspecified; I25.10 Atherosclerotic heart disease of native coronary artery without angina pectoris; I35.8 Other nonrheumatic aortic valve disorders; K21.9 Gastro-esophageal reflux disease without esophagitis; N18.3 Chronic kidney disease, stage 3 (moderate); Z66 Do not resuscitate; Y83.2 Surgical operation with anastomosis, bypass or graft as the cause of abnormal reaction of the patient, or of later complication, without mention of misadventure at the time of the procedure; Z95.0 Presence of cardiac pacemaker; Z79.01 Long term (current) use of anticoagulants; Z86.711 Personal history of pulmonary embolism; Z87.891 Personal history of nicotine dependence; Z80.9 Family history of malignant neoplasm, unspecified; Z82.0 Family history of epilepsy and other diseases of the nervous system; Y92.89 Other specified places as the place of occurrence of the external cause
CPT/HCPCS: 36415; 71045; 78452; 80048; 80053; 82962; 83880; 84484; 85025; 85610; 85730; 93005; 93017; 93306; 93459; 96374; 99156; 99157; 99285; C1760; C1769; C1894; G0378; J0583; J1644; J2250; J2785; J3010; J3490; A9502; C9898; J1940; J7030; Q9967

== ENCOUNTER 2018-10-20 08:29 | Inpatient (IN) | payer MEDICARE ==
[~2018-10-20] VITALS: Ht 172.7 cm; Wt 69.0 kg
[~2018-10-20 08:29] MED LIST changes: +DOCU-180 PO
[2018-10-20] MEDS ORDERED: METOCLOPRAMIDE 5 MG/ML, 2ML IVPush ONE (09:00)
[2018-10-20] MEDS ORDERED: ONDANSETRON 2MG/ML, 2ML IVPush ONE (09:00)
[2018-10-20] MEDS ORDERED: PLEASE ENTER HEIGHT AND WEIGHT MC SCH (09:00)
--- NOTE | 2018-10-20 09:00 | NUR ---
BIB BY [facility] FOR DIARRHEA W/ RESULTING FATIGUE AND NOW NAUSEA X 3 DAYS. FSBS 88. ON ARRIVAL VSS (132/82), AFEBRILE. EMS GAVE 500MK BOLUS AND 4 OF ZOFRAN. AFEBRILE. HX OF PACER/CABG/PARKINSONS
[2018-10-20] MEDS ORDERED: ONDANSETRON 2MG/ML, 2ML ONE (09:03)
[2018-10-20 09:20] LABS: MEAN CORPUSCULAR HGB CONC 32.4 g/dL (33.2-36.2); MEAN PLATELET VOLUME 7.8 fL (7.4-10.4); PLATELET COUNT 122 x10^3/uL (130-400); RED BLOOD COUNT 3.74 x10^6/uL (4.38-5.82); RED CELL DISTRIBUTION WIDTH 14.9 % (9.4-14.8)
[2018-10-20 09:22] LABS: ALANINE AMINOTRANSFERASE 11 U/L (12-78); ALBUMIN 3.3 g/dL (3.4-5.0); ANION GAP 2 mmol/L (5-15); CALCIUM 8.3 mg/dL (8.5-10.1); CHLORIDE 111 mmol/L (98-107); CREATININE 1.23 mg/dL (0.7-1.3)
[2018-10-20 09:24] LABS: ALKALINE PHOSPHATASE 51 U/L (45-117); BILIRUBIN,TOTAL 0.9 mg/dL (0.2-1.0); TOTAL PROTEIN 6.2 g/dL (6.4-8.2)
[2018-10-20 09:53] LABS: MD YES
[2018-10-20] MEDS ORDERED: FAMOTIDINE 20 MG/2 ML IVPush ONE (10:30)
[2018-10-20 10:44] LABS: <PLATELET ESTIMATE> ADEQUATE; <PLT MORPHOLOGY> NORMAL PLT MORPH; <RBC MORPHOLOGY> NORMAL; LYMPH#(MANUAL) 4.74 x10^3/uL (1-3.4); LYMPHS% (MANUAL) 46 % (22-44); MONOS#(MANUAL) 1.03 x10^3/uL (0.3-2.7); MONOS% (MANUAL) 10 % (2-9); SEG#(MANUAL) 4.53 x10^3/uL (1.8-6.8); SEGS% (MANUAL) 44 % (42-75)
--- NOTE | 2018-10-20 10:51 | NUR ---
PATIENT REPORTS NAUSEA IMPROVED AFTER REPEAT DOSE OF ZOFRAN BY CONVEYOR FEEDER TO 0/10. VSS. REMAINS AFEBRILE. HELPED UP TO COMMODE WHERE PATIENT WAS ABLE TO MODERATELY ASSIST. UA SENT. UABLE TO DEFECATE. REPORT "IM ALL DRY." VIKAS CARE COMPLETED AND HELPED BACK INTO CLEAN GURNEY. CALL BARILLAS IN HAND, SIDE RAILS UP. /SON AT BEDSIDE
[2018-10-20 11:29] LABS: MICROSCOPIC INDICATED
[2018-10-20 11:33] LABS: CULTURE INDICATED? NO
[2018-10-20] MEDS ORDERED: FLUOXETINE 10 MG CAP ONE (11:33)
[2018-10-20] MEDS ORDERED: RIVAROXABAN 10 MG TABLET ONE (11:34)
[2018-10-20] MEDS ORDERED: FAMOTIDINE 20 MG/2 ML ONE (11:34)
--- NOTE | 2018-10-20 11:50 | NUR ---
Bp noted to be 83/52. patient's neuro status unchanged. Hr reamains in the 70's. Provider to bedside-orders received for additional 500ml NS bolus. Re-adjusted in bed. Call dominguez in hand/siderails up. brought up need for stool sample-patient defers needs to go
[2018-10-20] MEDS ORDERED: SODIUM CHLORIDE 0.9% 1,000ML IVBOLUS ONE ×2 (12:00→12:30)
[2018-10-20] MEDS: FENOFIBRATE 145 MG TABLET PO SCH (12:17)
[2018-10-20] MEDS: RIVAROXABAN 15 MG TABLET PO SCH (12:18)
[2018-10-20] MEDS: FLUOXETINE 10 MG CAP PO SCH (12:19)
[2018-10-20] MEDS: GABAPENTIN 100 MG CAPSULE PO SCH ×5 (13:10→21:05)
[2018-10-20] MEDS: CARBIDOPA/LEVODOPA 25 MG/100 MG TABLET PO SCH ×3 (13:10→21:05)
[2018-10-20] MEDS ORDERED: ACETAMINOPHEN 325 MG TABLET PO PRN (14:30)
--- NOTE | 2018-10-20 14:34 | NUR ---
PATIENT UP TO COMMODE TO USE RESTROOM. LARGE AMOUNT OF LIQUID STOOL OBTAINED-SENT TO LAB. VSS. APPEARS MORE ALERT/INTERACTIVE NOW(SINEMET?) PERICARE PERFORMED. HELPED BACK TO DENISE. CALL BARILLAS IN HAND/SIDE RAILS UP
[2018-10-20] MEDS ORDERED: OMNIPAQUE 350 MG/ML, 100ML BOTTLE ONE (15:20)
[2018-10-20] MEDS ORDERED: NITROGLYCERIN 0.4 MG BOTTLE (25 TABS) SL PRN (15:30)
[2018-10-20 15:32] LABS: CLOSTRIDIUM DIFFICILE ANTIGEN NEGATIVE; CLOSTRIDIUM DIFFICILE TOXIN NEGATIVE (Negative)
[2018-10-20 15:51] LABS: THYROID STIMULATING HORMONE 0.991 mIU/L (0.358-3.740)
[2018-10-20] MEDS: SODIUM CHLORIDE 0.9% 1,000 ML IV SCH (17:15)
[2018-10-20 17:17] VITALS: BP 137/84
[2018-10-20 21:01] VITALS: BP 128/82
[2018-10-21 02:26] VITALS: BP 134/90
[2018-10-21] MEDS: GABAPENTIN 100 MG CAPSULE PO SCH ×8 (06:00→20:16)
[2018-10-21] MEDS: SODIUM CHLORIDE 0.9% 1,000 ML IV SCH ×2 (06:30→17:10)
[2018-10-21] MEDS: CARBIDOPA/LEVODOPA 25 MG/100 MG TABLET PO SCH ×4 (06:31→20:15)
[2018-10-21 07:30] LABS: MEAN CORPUSCULAR HEMOGLOBIN 32.5 pg (27.5-34.5); MEAN CORPUSCULAR VOLUME 98.5 fL (81-97); MEAN PLATELET VOLUME 7.3 fL (7.4-10.4); PLATELET COUNT 115 x10^3/uL (130-400)
[2018-10-21 07:37] LABS: ALANINE AMINOTRANSFERASE 7 U/L (12-78); ALBUMIN 2.9 g/dL (3.4-5.0); ANION GAP 5 mmol/L (5-15); CALCIUM 8.2 mg/dL (8.5-10.1); CHLORIDE 114 mmol/L (98-107); CREATININE 0.91 mg/dL (0.7-1.3)
[2018-10-21 07:39] LABS: ALKALINE PHOSPHATASE 45 U/L (45-117); TOTAL PROTEIN 5.5 g/dL (6.4-8.2)
[2018-10-21 07:45] VITALS: BP 91/64
[2018-10-21 09:00] LABS: MD YES
[2018-10-21] MEDS: RIVAROXABAN 15 MG TABLET PO SCH ×2 (09:00→09:29)
[2018-10-21 09:03] LABS: BAND#(MANUAL) 0.07 x10^3/uL; BANDS%(MANUAL) 1 % (0-7); EOS#(MANUAL) 0.13 x10^3/uL (0.0-0.4); EOS% (MANUAL) 2 % (1-7); LYMPH#(MANUAL) 3.48 x10^3/uL (1-3.4); LYMPHS% (MANUAL) 52 % (22-44); MONOS% (MANUAL) 9 % (2-9); REACTIVE LYMPHS # (MANUAL) 0.67 x10^3/uL (0-0); REACTIVE LYMPHS % (MANUAL) 10 % (0-0); SEG#(MANUAL) 1.74 x10^3/uL (1.8-6.8); SEGS% (MANUAL) 26 % (42-75)
[2018-10-21 09:09] LABS: POLYCHROMASIA 1+
[2018-10-21 09:10] LABS: <PLATELET ESTIMATE> DECREASED; <PLT MORPHOLOGY> NORMAL PLT MORPH
[2018-10-21] MEDS: FLUOXETINE 10 MG CAP PO SCH (09:29)
[2018-10-21] MEDS: PANTOPROZOLE 40MG TABLET PO SCH (09:29)
[2018-10-21] MEDS: FENOFIBRATE 145 MG TABLET PO SCH (09:29)
[2018-10-21 13:32] VITALS: BP 100/62
[2018-10-21 20:00] VITALS: BP 112/75
[2018-10-22 01:58] VITALS: BP 154/88
[2018-10-22 02:01] VITALS: BP 124/62
[2018-10-22 02:05] VITALS: BP 134/68
[2018-10-22] MEDS: CARBIDOPA/LEVODOPA 25 MG/100 MG TABLET PO SCH ×4 (04:52→20:25)
[2018-10-22] MEDS: GABAPENTIN 100 MG CAPSULE PO SCH ×8 (04:52→20:25)
[2018-10-22 06:07] LABS: MEAN CORPUSCULAR HEMOGLOBIN 33.1 pg (27.5-34.5); MEAN CORPUSCULAR HGB CONC 33.4 g/dL (33.2-36.2); MEAN CORPUSCULAR VOLUME 99.1 fL (81-97); MEAN PLATELET VOLUME 7.6 fL (7.4-10.4); PLATELET COUNT 125 x10^3/uL (130-400); RED BLOOD COUNT 3.88 x10^6/uL (4.38-5.82); RED CELL DISTRIBUTION WIDTH 14.6 % (9.4-14.8)
[2018-10-22 06:17] LABS: CHLORIDE 110 mmol/L (98-107)
[2018-10-22 06:28] LABS: ALANINE AMINOTRANSFERASE 11 U/L (12-78); ALKALINE PHOSPHATASE 46 U/L (45-117); ANION GAP 7 mmol/L (5-15); BILIRUBIN,TOTAL 1.3 mg/dL (0.2-1.0); CALCIUM 8.7 mg/dL (8.5-10.1); CREATININE 0.97 mg/dL (0.7-1.3); TOTAL PROTEIN 5.8 g/dL (6.4-8.2)
[2018-10-22 06:36] LABS: BASOPHILS # (AUTO) 0.02 x10^3/uL (0-0.1); BASOPHILS % (AUTO) 0 % (0-1); EOSINOPHILS # (AUTO) 0.03 x10^3/uL (0-0.4); EOSINOPHILS % (AUTO) 0 % (1-7); LYMPHOCYTES # (AUTO) 5.35 x10^3/uL (1-3.4); LYMPHOCYTES % (AUTO) 59 % (22-44); MD SCAN; MONOCYTES # (AUTO) 0.68 x10^3/uL (0.2-0.8); MONOCYTES % (AUTO) 8 % (2-9); NEUTROPHILS # (AUTO) 2.95 x10^3/uL (1.8-6.8); NEUTROPHILS % (AUTO) 33 % (42-75)
[2018-10-22 07:54] VITALS: BP 142/89
[2018-10-22] MEDS: RIVAROXABAN 15 MG TABLET PO SCH ×2 (09:00→09:27)
[2018-10-22] MEDS: FENOFIBRATE 145 MG TABLET PO SCH (09:27)
[2018-10-22] MEDS: FLUOXETINE 10 MG CAP PO SCH (09:27)
[2018-10-22] MEDS: PANTOPROZOLE 40MG TABLET PO SCH (09:27)
[2018-10-22] MEDS: SODIUM CHLORIDE 0.9% 1,000 ML IV SCH (09:30)
[2018-10-22 13:57] VITALS: BP 115/71
[2018-10-22 19:23] VITALS: BP 124/95
[2018-10-23 02:11] VITALS: BP 114/72
[2018-10-23] MEDS: CARBIDOPA/LEVODOPA 25 MG/100 MG TABLET PO SCH ×4 (05:59→20:10)
[2018-10-23] MEDS: GABAPENTIN 100 MG CAPSULE PO SCH ×8 (05:59→20:12)
[2018-10-23 08:28] VITALS: BP 151/91
[2018-10-23] MEDS: RIVAROXABAN 15 MG TABLET PO SCH (09:00)
[2018-10-23] MEDS: PANTOPROZOLE 40MG TABLET PO SCH (09:19)
[2018-10-23] MEDS: FLUOXETINE 10 MG CAP PO SCH (09:19)
[2018-10-23] MEDS: FENOFIBRATE 145 MG TABLET PO SCH (09:19)
[2018-10-23 16:15] VITALS: BP 145/88
[2018-10-23] MEDS ORDERED: RIVAROXABAN 15 MG TABLET PO SCH (17:00)
[2018-10-23 18:54] VITALS: BP 133/88
[2018-10-24] VITALS: BP 146/90
[2018-10-24] MEDS: CARBIDOPA/LEVODOPA 25 MG/100 MG TABLET PO SCH ×4 (05:33→20:12)
[2018-10-24] MEDS: GABAPENTIN 100 MG CAPSULE PO SCH ×4 (05:33→20:12)
[2018-10-24 08:08] VITALS: BP 137/98
[2018-10-24] MEDS: FLUOXETINE 10 MG CAP PO SCH (10:15)
[2018-10-24] MEDS: FENOFIBRATE 145 MG TABLET PO SCH (10:15)
[2018-10-24] MEDS: PANTOPROZOLE 40MG TABLET PO SCH (10:15)
[2018-10-24 14:32] VITALS: BP 84/54
[2018-10-24 15:51] VITALS: BP 127/84
[2018-10-24] MEDS ORDERED: RIVAROXABAN 15 MG TABLET PO SCH (17:00)
[2018-10-24 21:35] VITALS: BP 93/66
[2018-10-25 02:38] VITALS: BP 98/63
[2018-10-25] MEDS: GABAPENTIN 100 MG CAPSULE PO SCH ×2 (05:28→11:33)
[2018-10-25] MEDS: CARBIDOPA/LEVODOPA 25 MG/100 MG TABLET PO SCH ×2 (05:28→11:33)
[2018-10-25 06:26] LABS: MEAN CORPUSCULAR HEMOGLOBIN 33.3 pg (27.5-34.5); MEAN CORPUSCULAR HGB CONC 33.4 g/dL (33.2-36.2); MEAN CORPUSCULAR VOLUME 99.9 fL (81-97); MEAN PLATELET VOLUME 7.8 fL (7.4-10.4); PLATELET COUNT 127 x10^3/uL (130-400); RED BLOOD COUNT 3.56 x10^6/uL (4.38-5.82); RED CELL DISTRIBUTION WIDTH 14.9 % (9.4-14.8)
[2018-10-25 06:36] LABS: ANION GAP 5 mmol/L (5-15); CALCIUM 8.8 mg/dL (8.5-10.1); CHLORIDE 111 mmol/L (98-107)
[2018-10-25 06:42] LABS: CREATININE 1.26 mg/dL (0.7-1.3)
[2018-10-25 07:00] VITALS: BP 93/60
[2018-10-25 07:35] LABS: MD YES
[2018-10-25 07:39] LABS: BAND#(MANUAL) 0.09 x10^3/uL; BANDS%(MANUAL) 1 % (0-7); EOS#(MANUAL) 0.09 x10^3/uL (0.0-0.4); EOS% (MANUAL) 1 % (1-7); LYMPH#(MANUAL) 5.43 x10^3/uL (1-3.4); LYMPHS% (MANUAL) 59 % (22-44); MONOS#(MANUAL) 0.46 x10^3/uL (0.3-2.7); MONOS% (MANUAL) 5 % (2-9); REACTIVE LYMPHS # (MANUAL) 0.74 x10^3/uL (0-0); REACTIVE LYMPHS % (MANUAL) 8 % (0-0); SEG#(MANUAL) 2.39 x10^3/uL (1.8-6.8); SEGS% (MANUAL) 26 % (42-75)
[2018-10-25 07:40] LABS: <PLATELET ESTIMATE> DECREASED; <PLT MORPHOLOGY> NORMAL PLT MORPH
[2018-10-25] MEDS: PANTOPROZOLE 40MG TABLET PO SCH (10:11)
[2018-10-25] MEDS: FLUOXETINE 10 MG CAP PO SCH (10:11)
[2018-10-25] MEDS: FENOFIBRATE 145 MG TABLET PO SCH (10:11)
[2018-10-25 13:30] VITALS: BP 91/63
== END 2018-10-25 14:33 | DRG 314 ==
LOC: ED 09:08 → EDIP 13:18 → 4EST 16:48
PROVIDERS: ADMIT Hospitalist; ATTEND Hospitalist
PROC: 4B02XSZ Measurement of Cardiac Pacemaker, External Approach (ICD-10-PCS; principal; 2018-10-24)
PROC: 5A09357 Assistance with Respiratory Ventilation, Less than 24 Consecutive Hours, Continuous Positive Airway Pressure (ICD-10-PCS; 2018-10-24)
DX: I95.0 Idiopathic hypotension (principal); I26.99 Other pulmonary embolism without acute cor pulmonale; D68.59 Other primary thrombophilia; I50.42 Chronic combined systolic (congestive) and diastolic (congestive) heart failure; I13.0 Hypertensive heart and chronic kidney disease with heart failure and stage 1 through stage 4 chronic kidney disease, or unspecified chronic kidney disease; Z95.1 Presence of aortocoronary bypass graft; I25.10 Atherosclerotic heart disease of native coronary artery without angina pectoris; R00.0 Tachycardia, unspecified; Z95.0 Presence of cardiac pacemaker; R53.81 Other malaise; F03.90 Unspecified dementia, unspecified severity, without behavioral disturbance, psychotic disturbance, mood disturbance, and anxiety; Z66 Do not resuscitate; G20 Parkinson's disease; I49.5 Sick sinus syndrome; M54.30 Sciatica, unspecified side; N28.9 Disorder of kidney and ureter, unspecified; D50.9 Iron deficiency anemia, unspecified; D72.820 Lymphocytosis (symptomatic); E78.5 Hyperlipidemia, unspecified; G89.29 Other chronic pain; K21.9 Gastro-esophageal reflux disease without esophagitis; N18.3 Chronic kidney disease, stage 3 (moderate); Z79.01 Long term (current) use of anticoagulants; Z79.899 Other long term (current) drug therapy; Z80.9 Family history of malignant neoplasm, unspecified; Z82.0 Family history of epilepsy and other diseases of the nervous system; Z86.711 Personal history of pulmonary embolism
CPT/HCPCS: 36415; 74021; 74177; 80048; 80053; 81001; 83605; 83690; 83735; 83880; 84145; 84443; 85025; 87040; 87324; 89055; 93005; 96361; 96374; 96375; G0378; J2405; Q9967; J3490; J7030